=== PATIENT | male | born 1970 | race Caucasian/White ===

== ENCOUNTER 2023-05-26 15:36 | Outpatient (CLI) | payer OTHER, SELFPAY ==
[2023-05-26 19:56] LABS: Influenza A QL RT-PCR Positive (Negative); Influenza B QL RT-PCR Negative (Negative); RSV RNA, RT-PCR Negative (Negative); SARS-CoV-2 RNA PCR Negative (Negative)
== END 2023-05-26 15:37 | disposition home or self-care (01) ==
LOC: ANHGOSHLAB 15:38
PROVIDERS: PCP Family Medicine; Visit Provider Nurse Practitioner Family
DX: J01.90 Acute sinusitis, unspecified (principal); R53.83 Other fatigue; Z20.822 Contact with and (suspected) exposure to COVID-19
CPT/HCPCS: 87637